=== PATIENT | male | born 1965 | race African-American/Black ===

== ENCOUNTER 2016-11-08 12:59 | Inpatient (IN) | payer BC, OTHER ==
[2016-11-08 13:45] VITALS: BMI 23.4
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
[2016-11-08] MEDS ORDERED: METHADONE HCL 10 MG TABLET (FOR DETOX USE ONLY) PO ONE ×2 (15:17→23:00)
[2016-11-08] MEDS ORDERED: MAGNESIUM HYDROX 2400MG/30ML ORAL SUSPENSION 30 ML CUP PO PRN (15:17)
[2016-11-08] MEDS ORDERED: MAGNESIUM CITRATE 300 ML BOTTLE PO PRN (15:17)
[2016-11-08] MEDS ORDERED: guaiFENesin/D-METHORPHAN HB 10 ML UNIT-DOSE CUPS PO PRN (15:17)
[2016-11-08] MEDS ORDERED: diphenhydrAMINE HCL 50 MG CAPSULE PO PRN (15:17)
[2016-11-08] MEDS ORDERED: MAG HYDROX/AL HYDROX/SIMETH 30 ML UNIT-DOSE CUP PO PRN (15:17)
[2016-11-08] MEDS ORDERED: MENTHOL/PHENOL 1 EACH UD MM PRN (15:17)
[2016-11-08] MEDS ORDERED: ACETAMINOPHEN 325 MG TABLET (FP) PO PRN (15:17)
[2016-11-08] MEDS ORDERED: P-EPHED 60MG/TRIPROLIDI 2.5MG TABLET PO PRN (15:17)
[2016-11-08] MEDS ORDERED: LOPERAMIDE HCL 2 MG CAPSULE PO PRN (15:17)
[2016-11-08] MEDS ORDERED: hydrOXYzine PAMOATE 50 MG CAPSULE (FP) PO PRN (15:17)
[2016-11-08] MEDS ORDERED: ALBUTEROL SO4 6.7 GM HFA INHALER IH PRN (15:23)
--- NOTE | 2016-11-08 17:01 | PN ---
[facility] Progress Note Note: ekg vpc no chest pain,no sob,no dizziness repeat ekg in am close monitoring
[2016-11-08] MEDS: diazePAM 5 MG TABLET PO PRN (17:24)
[2016-11-08] MEDS: NICOTINE 21 MG/24 HOURS TOPICAL PATCH TD SCH (17:47)
[2016-11-08 17:50] LABS: URINE APPEARANCE CLEAR; URINE BILIRUBIN NEGATIVE (NEGATIVE); URINE BLOOD NEGATIVE (NEGATIVE); URINE COLOR YELLOW; URINE GLUCOSE (UA) NEGATIVE (NEGATIVE); URINE KETONE NEGATIVE (NEGATIVE); URINE LEUK ESTERASE NEGATIVE (NEGATIVE); URINE NITRITE NEGATIVE (NEGATIVE); URINE PROTEIN NEGATIVE (NEGATIVE); URINE UROBILINOGEN NEGATIVE E.U./dl (0.2-1.0)
[2016-11-08] MEDS: THIAMINE HCL 100 MG TABLET (FP) PO SCH (22:41)
[2016-11-08] MEDS: MONTELUKAST NA 10 MG TABLET PO SCH (22:41)
[2016-11-08] MEDS: BUDESONIDE/FORMETEROL FUMARATE 80/4.5 mcg INHALER IH SCH (22:41)
[2016-11-08] MEDS: GABAPENTIN 300 MG CAPSULE (FP) PO SCH (22:41)
[2016-11-09] MEDS: GABAPENTIN 300 MG CAPSULE (FP) PO SCH ×3 (06:13→22:27)
[2016-11-09] MEDS ORDERED: METHADONE HCL 10 MG TABLET (FOR DETOX USE ONLY) PO ONE (10:00)
[2016-11-09 10:12] LABS: MCH 26.9 pg (25.7-33.7); MCHC 32.6 g/dl (32.0-35.9); MEAN CELL VOLUME 82.4 fl (80-96); MEAN PLT VOLUME 10.2 fl (7.5-11.1); PLATELET COUNT 186 K/MM3 (134-434); RDW 16.9 % (11.9-15.9); WHITE BLOOD COUNT 7.5 K/mm3 (4.0-10.0)
--- NOTE | 2016-11-09 10:20 | PN ---
S COWS - Scale Resting Pulse: 0= [place] 80 or Below Sweatin= Chills/Flushing Restless Observation: 3= Extraneous Movement Pupil Size: 1= Pupils >than Normal Bone or Joint Aches: 2= Severe Diffuse Aches Runny Nose/ Eye Tearin= Runny Nose/Eyes GI Upset > 30mins: 3= Vomiting/Diarrhea Tremor Observation of Outstretched Hands: 2= Slight Tremor Visible Yawning Observation: 1= 1-2x During Session Anxiety or Irritability: 2=Irritable/Anxious Goose Flesh Skin: 0=Smooth Skin COWS Score: 17 S Progress Note (SOAP) Subjective: ALERT,IRRITABLE,ANXIOUS,INTERRUPTED SLEEP,TREMOR,PAIN IN THE BODY AND BACK Objective: 11/09/16 10:18 Vital Signs Temperature 97.5 F L 11/09/16 09:51 Pulse Rate 77 11/09/16 09:51 Respiratory Rate 20 11/09/16 09:51 Blood Pressure 148/77 11/09/16 09:51 O2 Sat by Pulse Oximetry (%) REPEAT EKG TODAY,NSR,NORMAL ECG Laboratory Last Values WBC 7.5 K/mm3 (4.0-10.0) 11/09/16 08:00 RBC 5.50 M/mm3 (4.00-5.60) 11/09/16 08:00 Hgb 14.8 GM/dL (11.7-16.9) 11/09/16 08:00 Hct 45.3 % (35.4-49) 11/09/16 08:00 MCV 82.4 fl (80-96) 11/09/16 08:00 MCHC 32.6 g/dl (32.0-35.9) 11/09/16 08:00 RDW 16.9 % (11.9-15.9) H 11/09/16 08:00 Plt Count 186 K/MM3 (134-434) 11/09/16 08:00 MPV 10.2 fl (7.5-11.1) 11/09/16 08:00 Urine Color Yellow 11/08/16 16:00 Urine Appearance Clear 11/08/16 16:00 Urine pH 5.0 (5.0-8.0) 11/08/16 16:00 Ur Specific [place] 1.015 (1.005-1.025) 11/08/16 16:00 Urine Protein Negative (NEGATIVE) 11/08/16 16:00 Urine Glucose (UA) Negative (NEGATIVE) 11/08/16 16:00 Urine Ketones Negative (NEGATIVE) 11/08/16 16:00 Urine Blood Negative (NEGATIVE) 11/08/16 16:00 Urine Nitrite Negative (NEGATIVE) 11/08/16 16:00 Urine Bilirubin Negative (NEGATIVE) 11/08/16 16:00 Urine Urobilinogen Negative E.U./dl (0.2-1.0) 11/08/16 16:00 Ur Leukocyte Esterase Negative (NEGATIVE) 11/08/16 16:00 LABS PENDING Assessment: 11/09/16 10:19 WITHDRAWAL SYMPTOM Plan: CONTINUE DETOX
[2016-11-09 10:29] LABS: ALBUMIN 3.4 g/dl (3.4-5.0); ANION GAP 7 (8-16); CO2 30 mmol/L (21-32); GLUCOSE,RANDOM 96 mg/dL (74-106); SGOT/AST 18 U/L (15-37); SGPT/ALT 19 U/L (12-78)
[2016-11-09 10:30] LABS: ALK PHOS 84 U/L (45-117); BILIRUBIN,TOTAL 0.2 mg/dL (0.2-1.0); CALCIUM 8.6 mg/dL (8.5-10.1); COCKROFT - GAULT 105.35; CREATININE 0.9 mg/dL (0.7-1.3); TOT PROT 6.7 g/dl (6.4-8.2)
[2016-11-09] MEDS: PRENATAL VITAMINS W/ FOLIC ACID TABLET (FP) PO SCH (10:50)
[2016-11-09] MEDS: NICOTINE 21 MG/24 HOURS TOPICAL PATCH TD SCH (10:51)
[2016-11-09] MEDS: diazePAM 5 MG TABLET PO PRN (10:51)
[2016-11-09] MEDS: BUDESONIDE/FORMETEROL FUMARATE 80/4.5 mcg INHALER IH SCH ×2 (10:51→22:27)
[2016-11-09] MEDS: IBUPROFEN 400 MG TABLET (FP) PO PRN (10:52)
--- NOTE | 2016-11-09 15:44 | EKG ---
Test Reason : Blood Pressure : / mmHG Vent. Rate : 058 BPM Atrial Rate : 058 BPM P-R Int : 142 ms QRS Dur : 086 ms QT Int : 448 ms P-R-T Axes : 060 036 038 degrees QTc Int : 439 ms SINUS BRADYCARDIA WITH PREMATURE VENTRICULAR COMPLEXES OR FUSION COMPLEXES OTHERWISE NORMAL ECG WHEN COMPARED WITH ECG OF 08-NOV-2016 15:37, T WAVE AMPLITUDE HAS INCREASED IN ANTERIOR LEADS CLINICAL CORRELATION IS RECOMMENDED Confirmed by ROSALIND GLOVER, ROMY ([id number]) on 11/09/2016 3:44:16 PM Referred By: Confirmed By:ROMY BOYER MD
--- NOTE | 2016-11-09 15:45 | EKG ---
Test Reason : Blood Pressure : / mmHG Vent. Rate : 064 BPM Atrial Rate : 064 BPM P-R Int : 132 ms QRS Dur : 088 ms QT Int : 416 ms P-R-T Axes : 058 048 039 degrees QTc Int : 429 ms SINUS RHYTHM WITH OCCASIONAL PREMATURE VENTRICULAR COMPLEXES AND FUSION COMPLEXES OTHERWISE NORMAL ECG NO PREVIOUS ECGS AVAILABLE Confirmed by ROSALIND GLOVER, ROMY ([id number]) on 11/09/2016 3:44:51 PM Referred By: Confirmed By:ROMY BOYER MD
[2016-11-09] MEDS: THIAMINE HCL 100 MG TABLET (FP) PO SCH (22:27)
[2016-11-09] MEDS: MONTELUKAST NA 10 MG TABLET PO SCH (22:27)
[2016-11-10] MEDS: GABAPENTIN 300 MG CAPSULE (FP) PO SCH ×3 (05:16→22:32)
[2016-11-10] MEDS: IBUPROFEN 400 MG TABLET (FP) PO PRN ×2 (05:18→10:36)
[2016-11-10] MEDS: diazePAM 5 MG TABLET PO PRN ×3 (05:18→22:32)
--- NOTE | 2016-11-10 09:49 | PN ---
[facility] COWS - Scale Resting Pulse: 1= [place] 81-100 Sweatin=Flushed/Facial Moisture Restless Observation: 3= Extraneous Movement Pupil Size: 1= Pupils >than Normal Bone or Joint Aches: 2= Severe Diffuse Aches Runny Nose/ Eye Tearin= Runny Nose/Eyes GI Upset > 30mins: 3= Vomiting/Diarrhea Tremor Observation of Outstretched Hands: 2= Slight Tremor Visible Yawning Observation: 1= 1-2x During Session Anxiety or Irritability: 2=Irritable/Anxious Goose Flesh Skin: 0=Smooth Skin COWS Score: 19 S Progress Note (SOAP) Subjective: ALERT,IRRITABLE,ANXIOUS,INTERRUPTED SLEEP,TREMOR,PAIN IN HE BODY AND BACK Objective: 11/10/16 09:48 Vital Signs Temperature 97.7 F 11/10/16 05:54 Pulse Rate 70 11/10/16 05:54 Respiratory Rate 18 11/10/16 05:54 Blood Pressure 128/72 11/10/16 05:54 O2 Sat by Pulse Oximetry (%) 11/10/16 09:48 Laboratory Last Values WBC 7.5 K/mm3 (4.0-10.0) 11/09/16 08:00 RBC 5.50 M/mm3 (4.00-5.60) 11/09/16 08:00 Hgb 14.8 GM/dL (11.7-16.9) 11/09/16 08:00 Hct 45.3 % (35.4-49) 11/09/16 08:00 MCV 82.4 fl (80-96) 11/09/16 08:00 MCHC 32.6 g/dl (32.0-35.9) 11/09/16 08:00 RDW 16.9 % (11.9-15.9) H 11/09/16 08:00 Plt Count 186 K/MM3 (134-434) 11/09/16 08:00 MPV 10.2 fl (7.5-11.1) 11/09/16 08:00 Sodium 140 mmol/L (136-145) 11/09/16 08:00 Potassium 4.5 mmol/L (3.5-5.1) 11/09/16 08:00 Chloride 103 mmol/L (98-107) 11/09/16 08:00 Carbon Dioxide 30 mmol/L (21-32) 11/09/16 08:00 Anion Gap 7 (8-16) L 11/09/16 08:00 BUN 9 mg/dL (7-18) 11/09/16 08:00 Creatinine 0.9 mg/dL (0.7-1.3) 11/09/16 08:00 Creat Clearance w eGFR > 60 (>60) 11/09/16 08:00 Random Glucose 96 mg/dL (74-106) D 11/09/16 08:00 Calcium 8.6 mg/dL (8.5-10.1) 11/09/16 08:00 Total Bilirubin 0.2 mg/dL (0.2-1.0) D 11/09/16 08:00 AST 18 U/L (15-37) D 11/09/16 08:00 ALT 19 U/L (12-78) D 11/09/16 08:00 Alkaline Phosphatase 84 U/L (45-117) D 11/09/16 08:00 Total Protein 6.7 g/dl (6.4-8.2) 11/09/16 08:00 Albumin 3.4 g/dl (3.4-5.0) 11/09/16 08:00 Urine Color Yellow 11/08/16 16:00 Urine Appearance Clear 11/08/16 16:00 Urine pH 5.0 (5.0-8.0) 11/08/16 16:00 Ur Specific [place] 1.015 (1.005-1.025) 11/08/16 16:00 Urine Protein Negative (NEGATIVE) 11/08/16 16:00 Urine Glucose (UA) Negative (NEGATIVE) 11/08/16 16:00 Urine Ketones Negative (NEGATIVE) 11/08/16 16:00 Urine Blood Negative (NEGATIVE) 11/08/16 16:00 Urine Nitrite Negative (NEGATIVE) 11/08/16 16:00 Urine Bilirubin Negative (NEGATIVE) 11/08/16 16:00 Urine Urobilinogen Negative E.U./dl (0.2-1.0) 11/08/16 16:00 Ur Leukocyte Esterase Negative (NEGATIVE) 11/08/16 16:00 Assessment: 11/10/16 09:48 11/10/16 09:48 WITHDRAWAL SYMPTOM Plan: CONTINUE DETOX
[2016-11-10] MEDS ORDERED: METHADONE HCL 5 MG TABLET (FOR DETOX USE ONLY) PO ONE (10:00)
[2016-11-10] MEDS: buPROPion HCL 75 MG TABLET PO SCH (10:33)
[2016-11-10] MEDS: PRENATAL VITAMINS W/ FOLIC ACID TABLET (FP) PO SCH (10:33)
[2016-11-10] MEDS: BUDESONIDE/FORMETEROL FUMARATE 80/4.5 mcg INHALER IH SCH ×2 (10:33→22:33)
[2016-11-10] MEDS: cloNIDine HCL 0.1 MG TABLET PO SCH ×2 (10:34→22:32)
[2016-11-10] MEDS: NICOTINE 21 MG/24 HOURS TOPICAL PATCH TD SCH (10:35)
--- NOTE | 2016-11-10 11:40 | CONSULT ---
[facility] Psychiatric Consult - Data Date of interview: 11/10/16 Admission source: [facility] Identifying data: This is 51 years old male witn no psychiatric hospitalization history intoxicated with intoxicated with: [place], Opioids and Nicotine Substance Abuse History: - Smoking Cessation. Smoking history: Current every day smoker. Have you smoked in the past 12 months: Yes. Aproximately how many cigarettes per day: 10. Hx Chewing Tobacco Use: No. Initiated information on smoking cessation: Yes. 'Breaking Loose' booklet given: 11/01/16. - Substance & Tx. History. Hx Alcohol Use: No. Hx Substance Use: Yes. Substance Use Type : Heroin. Hx Substance Use Treatment: Yes ([facility] 08/27/15 to 09/01/15). - Substances Abused. Heroin. Route: Inhalation. Frequency: Daily. Amount used: 3-4 bags. Age of first use: 23. Date of Last Use: 11/06/16 Medical History: Asthma, Syphilis history, Sickle Cell Trait Psychiatric History: Patient reports history of depression, reports taking prior to admission: Wellbutrin 75mg poqd Physical/Sexual Abuse/Trauma History: Denies, Unclear Additional Comment: Wellbutrin 75mg poqd Mental Status Exam - Mental Status Exam Alert and Oriented to: Person Cognitive Function: Fair Patient Appearance: Unkempt Mood: Sad Affect: Flat Patient Behavior: Sedated Speech Pattern: Delayed Voice Loudness: Mildly Soft/Quiet Thought Process: Circumstantial Thought Disorder: Being Controlled Hallucinations: Denies Suicidal Ideation: Denies Homicidal Ideation: Denies Insight/Judgement: Fair Sleep: Difficulty falling asleep Appetite: Weight gain Muscle strength/Tone: Mild Hypotonicity Gait/Station: Shuffling Additional Comments: Wellbutrin 75mg poqd Psychiatric Findings - Problem List ([place] 1, 2,3) (1) Alcohol dependence Current Visit: No Status: Acute (2) Alcohol dependence with uncomplicated withdrawal Current Visit: No Status: Acute (3) Opioid dependence Current Visit: No Status: Acute (4) Nicotine dependence Current Visit: No Status: Chronic Qualifiers: Nicotine product type: cigarettes Substance use status: unspecified nicotine-induced disorder Qualified Code(s): F17.219 - Nicotine dependence, cigarettes, with unspecified nicotine-induced disorders (5) Drug-induced mood disorder Current Visit: Yes Status: Acute - Initial Treatment Plan Initial Treatment Plan: Wellbutrin 75mg poqd
[2016-11-10] MEDS: MONTELUKAST NA 10 MG TABLET PO SCH (22:32)
[2016-11-10] MEDS: CYCLOBENZAPRINE HCL 10 MG TABLET (FP) PO PRN (22:33)
[2016-11-10] MEDS: THIAMINE HCL 100 MG TABLET (FP) PO SCH (22:33)
[2016-11-11] MEDS: GABAPENTIN 300 MG CAPSULE (FP) PO SCH ×3 (05:43→22:30)
[2016-11-11] MEDS ORDERED: METHADONE HCL 5 MG TABLET (FOR DETOX USE ONLY) PO ONE (10:00)
--- NOTE | 2016-11-11 10:15 | PN ---
[facility] Progress Note (SOAP) Subjective: ALERT,IRRITABLE,ANXIOUS,INTERRUPTED SLEEP,TREMOR Objective: 11/11/16 10:14 Vital Signs Temperature 98.4 F 11/11/16 09:37 Pulse Rate 80 11/11/16 09:37 Respiratory Rate 20 11/11/16 09:37 Blood Pressure 118/63 11/11/16 09:37 O2 Sat by Pulse Oximetry (%) Assessment: 11/11/16 10:14 WITHDRAWAL SYMPTOM Plan: CONTINUE DETOX
--- NOTE | 2016-11-11 10:21 | PN ---
[facility] Progress Note Note: Laboratory Last Values WBC 7.5 K/mm3 (4.0-10.0) 11/09/16 08:00 RBC 5.50 M/mm3 (4.00-5.60) 11/09/16 08:00 Hgb 14.8 GM/dL (11.7-16.9) 11/09/16 08:00 Hct 45.3 % (35.4-49) 11/09/16 08:00 MCV 82.4 fl (80-96) 11/09/16 08:00 MCHC 32.6 g/dl (32.0-35.9) 11/09/16 08:00 RDW 16.9 % (11.9-15.9) H 11/09/16 08:00 Plt Count 186 K/MM3 (134-434) 11/09/16 08:00 MPV 10.2 fl (7.5-11.1) 11/09/16 08:00 Sodium 140 mmol/L (136-145) 11/09/16 08:00 Potassium 4.5 mmol/L (3.5-5.1) 11/09/16 08:00 Chloride 103 mmol/L (98-107) 11/09/16 08:00 Carbon Dioxide 30 mmol/L (21-32) 11/09/16 08:00 Anion Gap 7 (8-16) L 11/09/16 08:00 BUN 9 mg/dL (7-18) 11/09/16 08:00 Creatinine 0.9 mg/dL (0.7-1.3) 11/09/16 08:00 Creat Clearance w eGFR > 60 (>60) 11/09/16 08:00 Random Glucose 96 mg/dL (74-106) D 11/09/16 08:00 Calcium 8.6 mg/dL (8.5-10.1) 11/09/16 08:00 Total Bilirubin 0.2 mg/dL (0.2-1.0) D 11/09/16 08:00 AST 18 U/L (15-37) D 11/09/16 08:00 ALT 19 U/L (12-78) D 11/09/16 08:00 Alkaline Phosphatase 84 U/L (45-117) D 11/09/16 08:00 Total Protein 6.7 g/dl (6.4-8.2) 11/09/16 08:00 Albumin 3.4 g/dl (3.4-5.0) 11/09/16 08:00 Urine Color Yellow 11/08/16 16:00 Urine Appearance Clear 11/08/16 16:00 Urine pH 5.0 (5.0-8.0) 11/08/16 16:00 Ur Specific [place] 1.015 (1.005-1.025) 11/08/16 16:00 Urine Protein Negative (NEGATIVE) 11/08/16 16:00 Urine Glucose (UA) Negative (NEGATIVE) 11/08/16 16:00 Urine Ketones Negative (NEGATIVE) 11/08/16 16:00 Urine Blood Negative (NEGATIVE) 11/08/16 16:00 Urine Nitrite Negative (NEGATIVE) 11/08/16 16:00 Urine Bilirubin Negative (NEGATIVE) 11/08/16 16:00 Urine Urobilinogen Negative E.U./dl (0.2-1.0) 11/08/16 16:00 Ur Leukocyte Esterase Negative (NEGATIVE) 11/08/16 16:00 RPR Titer Reactive 1:2 (NONREACTIVE) H D 11/09/16 08:00 T.pallidum Ab (MHA) Non reactive (NONREACTIVE) 11/09/16 08:00 PATIENT WAS TREATED FOR SYPHILIS IN THE PAST
[2016-11-11] MEDS: buPROPion HCL 75 MG TABLET PO SCH (10:30)
[2016-11-11] MEDS: diazePAM 5 MG TABLET PO PRN (10:30)
[2016-11-11] MEDS: cloNIDine HCL 0.1 MG TABLET PO SCH ×2 (10:30→22:30)
[2016-11-11] MEDS: CYCLOBENZAPRINE HCL 10 MG TABLET (FP) PO PRN ×2 (10:30→22:30)
[2016-11-11] MEDS: PRENATAL VITAMINS W/ FOLIC ACID TABLET (FP) PO SCH (10:30)
[2016-11-11] MEDS: BUDESONIDE/FORMETEROL FUMARATE 80/4.5 mcg INHALER IH SCH ×2 (10:31→22:30)
[2016-11-11] MEDS: NICOTINE 21 MG/24 HOURS TOPICAL PATCH TD SCH (10:31)
[2016-11-11] MEDS: MONTELUKAST NA 10 MG TABLET PO SCH (22:30)
[2016-11-11] MEDS: THIAMINE HCL 100 MG TABLET (FP) PO SCH (22:30)
[2016-11-12] MEDS: GABAPENTIN 300 MG CAPSULE (FP) PO SCH ×3 (05:45→22:22)
[2016-11-12] MEDS ORDERED: METHADONE HCL 10 MG TABLET (FOR DETOX USE ONLY) PO ONE (10:00)
[2016-11-12] MEDS: NICOTINE 21 MG/24 HOURS TOPICAL PATCH TD SCH (10:13)
[2016-11-12] MEDS: cloNIDine HCL 0.1 MG TABLET PO SCH ×2 (10:13→22:22)
[2016-11-12] MEDS: CYCLOBENZAPRINE HCL 10 MG TABLET (FP) PO PRN ×2 (10:13→22:22)
[2016-11-12] MEDS: buPROPion HCL 75 MG TABLET PO SCH (10:13)
[2016-11-12] MEDS: PRENATAL VITAMINS W/ FOLIC ACID TABLET (FP) PO SCH (10:13)
[2016-11-12] MEDS: BUDESONIDE/FORMETEROL FUMARATE 80/4.5 mcg INHALER IH SCH ×2 (10:14→22:21)
--- NOTE | 2016-11-12 10:25 | PN ---
[facility] Progress Note (SOAP) Subjective: some sweats Objective: 11/12/16 10:25 Vital Signs Temperature 97.7 F 11/12/16 09:52 Pulse Rate 93 H 11/12/16 09:52 Respiratory Rate 20 11/12/16 09:52 Blood Pressure 111/66 11/12/16 09:52 O2 Sat by Pulse Oximetry (%) awake/alert ambulating no acute distress Assessment: 11/12/16 10:26 withdrawal sx Plan: continue detox d/c in am
[2016-11-12] MEDS: MONTELUKAST NA 10 MG TABLET PO SCH (22:22)
[2016-11-12] MEDS: THIAMINE HCL 100 MG TABLET (FP) PO SCH (22:22)
[2016-11-13] MEDS: GABAPENTIN 300 MG CAPSULE (FP) PO SCH (05:31)
[2016-11-13] MEDS ORDERED: METHADONE HCL 5 MG TABLET (FOR DETOX USE ONLY) PO ONE (06:00)
[2016-11-13 09:50] VITALS: BP 118/67; PULSE 89; TEMP 98.2
[2016-11-13] MEDS: cloNIDine HCL 0.1 MG TABLET PO SCH (10:05)
[2016-11-13] MEDS: BUDESONIDE/FORMETEROL FUMARATE 80/4.5 mcg INHALER IH SCH (10:05)
[2016-11-13] MEDS: PRENATAL VITAMINS W/ FOLIC ACID TABLET (FP) PO SCH (10:05)
[2016-11-13] MEDS: buPROPion HCL 75 MG TABLET PO SCH (10:06)
[2016-11-13] MEDS: NICOTINE 21 MG/24 HOURS TOPICAL PATCH TD SCH (10:07)
--- NOTE | 2016-11-13 11:47 | DS ---
[facility] Detox Discharge Summary Admission Date: 11/08/16 Discharge Date: 11/13/16 - History Present History: Alcohol Dependence, Opioid Dependence - Physical Exam Results Vital Signs: Vital Signs Temperature 98.2 F 11/13/16 09:50 Pulse Rate 89 11/13/16 09:50 Respiratory Rate 16 11/13/16 09:50 Blood Pressure 118/67 11/13/16 09:50 O2 Sat by Pulse Oximetry (%) - Treatment Hospital Course: Detox Protocol Followed, Detoxed Safely, Responded well, Discharged Condition Good, Rehab Referral Accepted - Medication Discharge Medications: Ambulatory Orders Albuterol Sulfate Inhaler - [Ventolin Hfa Inhaler -] 2 inh PO Q4H PRN 08/27/15 Budesonide/Formeterol Fumarate [SYMBICORT 80/4.5mcg -] 1 inh PO DAILY 11/08/16 Bupropion HCl [Wellbutrin -] 75 mg PO DAILY 11/08/16 Gabapentin [Neurontin -] 300 mg PO Q8H 11/08/16 Montelukast Na [Singulair -] 10 mg PO DAILY 11/08/16 Tizanidine HCl [Zanaflex] 4 mg PO TID 11/08/16 Bupropion HCl [Wellbutrin -] 75 mg PO DAILY #30 tablet 11/10/16 - Diagnosis (1) Depression Current Visit: Yes Status: Chronic (2) Drug-induced mood disorder Current Visit: Yes Status: Acute (3) Alcohol dependence with uncomplicated withdrawal Current Visit: Yes Status: Chronic (4) Opioid dependence with withdrawal Current Visit: Yes Status: Chronic (5) Syphilis contact, treated Current Visit: No Status: Acute (6) Asthma Current Visit: Yes Status: Chronic Qualifiers: Asthma severity: mild intermittent Asthma complication type: uncomplicated Qualified Code(s): J45.20 - Mild intermittent asthma, uncomplicated (7) Nicotine dependence Current Visit: Yes Status: Chronic Qualifiers: Nicotine product type: cigarettes Substance use status: uncomplicated Qualified Code(s): F17.210 - Nicotine dependence, cigarettes, uncomplicated (8) Sickle cell trait Current Visit: No Status: Chronic - AMA Did Patient Leave Against Medical Advice: No (outpatient rehab )
== END 2016-11-13 10:47 | disposition home or self-care (01) | DRG 773 ==
LOC: YASAS 12:59 → Y6N 15:04
PROVIDERS: ADMIT Internal Medicine; ATTEND Internal Medicine
PROC: HZ2ZZZZ Detoxification Services for Substance Abuse Treatment (ICD-10-PCS; principal; 2016-11-08)
DX: F11.23 Opioid dependence with withdrawal (principal); F10.230 Alcohol dependence with withdrawal, uncomplicated; F17.210 Nicotine dependence, cigarettes, uncomplicated; F32.9 Major depressive disorder, single episode, unspecified; F19.24 Other psychoactive substance dependence with psychoactive substance-induced mood disorder; J45.20 Mild intermittent asthma, uncomplicated; D57.3 Sickle-cell trait; Z87.438 Personal history of other diseases of male genital organs
CPT/HCPCS: 36415; 80053; 81003; 85027; 86593; 86780; 93005; 93010